=== PATIENT | female | born 1990 | race Caucasian/White ===

== ENCOUNTER → 2017-07-05 | Outpatient (CLI) | payer BC | END | disposition home or self-care (01) | LOC: LABWHC1 12:01 | PROVIDERS: ATTEND Obstetrics & Gynecology | DX: O20.0 Threatened abortion (principal); Z3A.00 Weeks of gestation of pregnancy not specified | CPT/HCPCS: 36415; 84702; 86850; 86900; 86901 ==

== ENCOUNTER → 2017-09-15 | Outpatient (CLI) | payer BC ==
--- NOTE | 2017-09-15 10:22 | US ---
EXAMINATION TYPE: US pelvic complete DATE OF EXAM: 09/15/2017 COMPARISON: NONE CLINICAL HISTORY: R10.2 PELVIC PAIN. Pt states pelvic pressure/ pain, more on right, pt states miscar riage in JUNE TECHNIQUE: Transabdominal (TA). Date of LMP: 09/07/2017 EXAM MEASUREMENTS: Uterus: 7.8 x 3.5 x 3.6 cm Endometrial Stripe: 0.7 cm Right Ovary: 2.8 x 1.8 x 2.1 cm Left Ovary: 2.8 x 2.0 x 3.1 cm 1. Uterus: Retroverted wnl 2. Endometrium: wnl 3. Right Ovary: wnl, follicles 4. Left Ovary: wnl, follicles 5. Bilateral Adnexa: wnl 6. Posterior cul-de-sac: Small amount of free fluid IMPRESSION: 1. Small amount of free fluid within the cul-de-sac. 2. Small ovarian follicles.
== END | disposition home or self-care (01) ==
LOC: RADUSWWP 09:08
PROVIDERS: ATTEND Internal Medicine
DX: R18.8 Other ascites (principal)
CPT/HCPCS: 76856

== ENCOUNTER 2019-01-01 00:49 | Outpatient (CLI) | payer BC ==
[2019-01-01] MEDS: TERBUTALINE 1 MG/ML VIAL SQ PRN ×3 (01:20→01:50)
[2019-01-01] MEDS: LACTATED RINGERS 1,000 ML IV SCH ×3 (01:23→01:45)
[2019-01-01 02:58] VITALS: BP 135/80; PULSE 110; RESP 18; TEMP 98.2
--- NOTE | 2019-03-03 07:42 | P.MSEPDOC ---
Presenting Problems - Arrival Data Date of Arrival on Unit: 01/01/19 Time of Arrival on Unit: 00:45 Mode of Transport: Wheelchair - Complaint OB-Reason for Admission/Chief Complaint: Possible Onset of Labor Medical History - Information : 3 Para: 2 Term: 2 : 0 Abortions: Spontaneous or Elective: 0 Number of Living Children: 2 - Gestational Age Gestational Age by DAISY (wks/days): 33 Weeks and 5 Days Review of Systems - Review of Systems Constitutional: No problems Breast: No problems ENT: No problems Cardiovascular: No problems Respiratory: No problems Gastrointestinal: No problems Genitourinary: No problems Musculoskeletal: No problems Neurological: No problems Skin: No problems Vital Signs - Temperature Temperature: 98.2 F Temperature Source: Oral - Pulse Pulse Oximetery Pulse Rate: 110 Pulse Assessment Method: Automatic Cuff - Respirations Respiratory Rate: 18 Oxygen Delivery Method: Room Air O2 Sat by Pulse Oximetry: 99 - Blood Pressure Sitting Blood Pressure: 135/80 Blood Pressure Mean: 98 Blood Pressure Source: Automatic Cuff Medical Screen Scoring (Pre) - Cervical Exam Dilation: 1-3 cm = 1 Membranes: Intact - Uterine Contractions Frequency: < 36 weeks = 6 Duration: > 40 seconds = 2 Intensity: N/A - Maternal Vital Signs Maternal Temperature: N/A Maternal Blood Pressure: N/A Signs of Preeclampsia: N/A Maternal Respirations: N/A - Maternal Trauma Maternal Trauma: N/A - Assessment - Baby A Baseline FHR: 145 Heart Rate - NICHD Category: Category I (Normal) = 0 NST: Reactive Position: N/A Station: N/A - Total Score - Baby A Total Score - Baby A: 9 - Total Score - Baby B Total Score - Baby B: 9 - Total Score - Baby C Total Score - Baby C: 9 - Level of Risk - Baby A Level of Risk - Baby A: Medium (6-9) - Level of Risk - Baby B Level of Risk - Baby B: Medium (6-9) - Level of Risk - Baby C Level of Risk - Baby C: Medium (6-9) Physician Notification (Pre) - Physician Notified Physician Notified Date: 01/01/19 Physician Notified Time: 01:05 New Order Received: Yes - Notification Comment Comment: Initiate iv and give a 1-2 L bolus to see if contractions settle with iv hydration and recheck cervix in one hour. 0118: Seen FFN give Terbutaline .25mg every 15 minutes for up to 4 doses, if have to give the 4th dose and or FFN is positive call physician with report. 02:23: Discharge home with instructions, no heavy lifting, no intercourse, follow up with Dr. Mayorga in the office this week. Disposition - Disposition OB Disposition: Physician follow up in office, Discharge to home, Written follow up instructions reviewed Discharge Date: 01/01/19 Discharge Time: 02:34 I agree with the RN Medical Screening Exam: Yes Risk & Benefit of care provided described in d/c instruction: Yes Diagnosis: FALSE LABOR BEFORE 37 COMPLETED WEEKS OF GEST, THIRD TRI
== END 2019-01-01 02:34 | disposition home or self-care (01) ==
LOC: FBPOP 00:49
PROVIDERS: ATTEND Obstetrics & Gynecology
DX: O47.03 False labor before 37 completed weeks of gestation, third trimester (principal); Z3A.33 33 weeks gestation of pregnancy
CPT/HCPCS: 99214; 96360; 96361; 96372; 82731; J3105; 96365

== ENCOUNTER 2019-01-29 12:47 | Outpatient (CLI) | payer BC ==
[2019-01-29 14:23] VITALS: BP 132/79; PULSE 99; RESP 16; TEMP 98.5
--- NOTE | 2019-02-20 09:57 | P.MSEPDOC ---
Presenting Problems - Arrival Data Date of Arrival on Unit: 01/29/19 Time of Arrival on Unit: 12:47 Mode of Transport: Wheelchair - Complaint OB-Reason for Admission/Chief Complaint: Vaginal Bleeding, Pain Medical History - Information : 4 Para: 2 Term: 2 : 0 Abortions: Spontaneous or Elective: 1 Number of Living Children: 2 - Gestational Age Gestational Age by DAISY (wks/days): 37 Weeks and 5 Days Review of Systems - Review of Systems Constitutional: No problems Breast: No problems ENT: No problems Cardiovascular: No problems Respiratory: No problems Gastrointestinal: No problems Genitourinary: No problems Musculoskeletal: No problems Neurological: No problems Skin: No problems Vital Signs - Temperature Temperature: 98.5 F Temperature Source: Oral - Pulse Pulse Oximetery Pulse Rate: 99 Pulse Assessment Method: Pulse Oximetry - Respirations Respiratory Rate: 16 Oxygen Delivery Method: Room Air O2 Sat by Pulse Oximetry: 97 - Blood Pressure Right Arm Sitting Blood Pressure: 132/79 Blood Pressure Mean: 96 Blood Pressure Source: Automatic Cuff Medical Screen Scoring (Pre) - Cervical Exam Dilation: 1-3 cm = 1 Membranes: Intact - Uterine Contractions Frequency: > or = 36 weeks =2 Duration: > 40 seconds = 2 Intensity: N/A - Maternal Vital Signs Maternal Temperature: N/A Maternal Blood Pressure: N/A Signs of Preeclampsia: N/A Maternal Respirations: N/A - Maternal Trauma Maternal Trauma: N/A - Assessment - Baby A Baseline FHR: 160 Heart Rate - NICHD Category: Category I (Normal) = 0 NST: Reactive Position: N/A Station: N/A - Total Score - Baby A Total Score - Baby A: 5 - Total Score - Baby B Total Score - Baby B: 5 - Total Score - Baby C Total Score - Baby C: 5 - Level of Risk - Baby A Level of Risk - Baby A: Low (0-5) - Level of Risk - Baby B Level of Risk - Baby B: Low (0-5) - Level of Risk - Baby C Level of Risk - Baby C: Low (0-5) Physician Notification (Pre) - Physician Notified Physician Notified Date: 01/29/19 Physician Notified Time: 14:12 New Order Received: Yes - Notification Comment Comment: Joel murillo\Dr. Mcwilliams; advsd , 37 5/7 presents to triage with pain and brown discharge; SVE 1.5/40/-2, unchanged after 1 hr, reactive NST, contraction pattern reviewed; pt requesting to stay another hr r/t distance from hospital; order rec'd to watch another hour, may be d/c if repeat SVE is unchanged. Medical Screen Scoring (Post) - Cervical Exam Dilation: 1-3 cm = 1 Effacement: Exam Deferred Membranes: Intact - Uterine Contractions Frequency: > or = 36 weeks =2 - Total Score Total Score - Baby A: 3 Total Score - Baby B: 3 Total Score - Baby C: 3 - Post Treatment Level of Risk Post Treatment Level of Risk - Baby A: Low (0-5) Post Treatment Level of Risk - Baby B: Low (0-5) Post Treatment Level of Risk - Baby C: Low (0-5) Disposition - Disposition OB Disposition: Discharge to home, Written follow up instructions reviewed Discharge Date: 01/29/19 Discharge Time: 15:15 I agree with the RN Medical Screening Exam: Yes Risk & Benefit of care provided described in d/c instruction: Yes Diagnosis: FALSE LABOR AT OR AFTER 37 COMPLETED WEEKS OF GESTATION
== END 2019-01-29 15:15 | disposition home or self-care (01) ==
LOC: FBPOP 12:47
PROVIDERS: ATTEND Obstetrics & Gynecology
DX: O47.1 False labor at or after 37 completed weeks of gestation (principal); Z3A.37 37 weeks gestation of pregnancy
CPT/HCPCS: 59025; 99213

== ENCOUNTER 2019-02-06 17:08 | Inpatient (IN) | payer BC, OTHER ==
[2019-02-06] MEDS ORDERED: TERBUTALINE 1 MG/ML VIAL SQ PRN (20:07)
[2019-02-06] MEDS ORDERED: OXYTOCIN 10 UNIT/ML 1 ML VIAL IM PRN (20:07)
[2019-02-06] MEDS ORDERED: METHYLERGONOVINE 0.2 MG/ML 1 ML AMP IM PRN (20:07)
[2019-02-06] MEDS ORDERED: CARBOPROST TROMETHAMINE 250 MCG/ML 1 ML AMP IM PRN (20:07)
[2019-02-06] MEDS ORDERED: LIDOCAINE 0.5% (PF) 5 MG/ML (50 ML SDV) SQ PRN (20:07)
[2019-02-06] MEDS ORDERED: PENICILLIN G POTASSIUM 5,000,000 UNIT in DEXTROSE 5% IN WATER 100 ML IVPB STA ×2 (20:11)
[2019-02-06] MEDS: LACTATED RINGERS 1,000 ML IV SCH ×2 (21:03→23:11)
[2019-02-06 21:06] LABS: Basophils % (A) 0 %; Eosinophils # (A) 0.1 k/uL (0-0.7); Eosinophils % (A) 1 %; HCT 39.3 % (34.0-46.0); Lymphocytes % (A) 17 %; MCH 27.1 pg (25.0-35.0); MCV 82.1 fL (80.0-100.0); Mean Platelet Volume 11.6; Monocytes # (A) 0.5 k/uL (0-1.0); Monocytes % (A) 4 %; Neutrophils # (A) 9.5 k/uL (1.3-7.7); Neutrophils % (A) 77 %; Platelet Count 149 k/uL (150-450); RBC 4.79 m/uL (3.80-5.40); RDW 13.9 % (11.5-15.5); WBC 12.3 k/uL (3.8-10.6)
[2019-02-06] MEDS ORDERED: ROPIVACAINE 5MG/ML 20ML VIAL ONE (23:07)
[2019-02-06] MEDS ORDERED: fentaNYL (PF) 50 MCG/ML 5 ML AMP ONE (23:07)
[2019-02-06] MEDS ORDERED: SODIUM CHLORIDE 0.9% 100 ML BAG ONE (23:07)
[2019-02-07] MEDS: LACTATED RINGERS 1,000 ML IV SCH (00:14)
[2019-02-07] MEDS: PENICILLIN G POTASSIUM 2,500,000 UNIT in DEXTROSE 5% IN WATER 100 ML IVPB SCH ×4 (01:00→04:57)
--- NOTE | 2019-02-07 05:42 | P.HPOB ---
History of Present Illness H&P Date: 02/07/19 Chief Complaint: Vaginal bleeding This is a 28-year-old 4 para 2012 woman with an estimated due date of 02/14/2019 based on 9 week ultrasound. She presents with vaginal spotting for the last 2 days. She is also complaining of pelvic pressure and contractions. She was evaluated in labor and delivery triage and was found to make cervical change management facilitator time. Being 3 cm when she presented and progressing to 4-5 cm with regular contractions. She was therefore admitted. She did not have any clinical vaginal bleeding on her initial by UA patient nor rupture of membranes. Her has been essentially unremarkable. The infant has a small ventriculoseptal defect confirmed by echocardiogram. Plan is for pediatric evaluation. Laboratory data: Group B strep positive, blood type A+, antibody screen negative, rubella immune, VDRL nonreactive, hepatitis B surface antigen negative, HIV negative, gonorrhea and clinic cultures negative, glucose tolerance testing within normal limits. Obstetric history: 2013 at term, 2016 at term, spontaneous miscarriage 2018. Review of Systems All systems: negative Past Medical History Past Medical History: No Reported History History of Any Multi-Drug Resistant Organisms: None Reported Past Surgical History: No Surgical Hx Reported Additional Past Surgical History / Comment(s): Exploratory Lap -2018 Past Anesthesia/Blood Transfusion Reactions: No Reported Reaction Past Psychological History: No Psychological Hx Reported Smoking Status: Former smoker Past Alcohol Use History: None Reported Past Drug Use History: None Reported - Past Family History Mother Family Medical History: No Reported History Medications and Allergies Home Medications Medication Instructions Recorded Confirmed Type 78/Iron/Folate 1/Dha 1 each PO DAILY 01/01/19 02/06/19 History [Prenate Dha Softgel] Allergies Allergy/AdvReac Type Severity Reaction Status Date / Time No Known Allergies Allergy Verified 02/06/19 17:31 Exam Vital Signs Temp Pulse Resp BP 02/06/19 20:42 97.9 F 91 18 114/71 02/06/19 19:30 98.3 F 16 125/77 Intake and Output 02/06/19 02/06/19 02/07/19 14:59 22:59 06:59 Output Total 200 Balance -200 Output: Urine 200 Other: # Voids 1 1 Weight 87.997 kg Targeted physical exam is performed secondary to active labor. On patient is a comfortable female who is visibly gravid. She has a notable ocular nystigmous. On pelvic examination on admission per RN cervix is 4+ centimeters dilated, 50% effaced vertex in the -3 station. Intact. heart tones are category 1 with contractions every 2-3 minutes. Results Result Diagrams: 02/06/19 20:55 Abnormal Lab Results - Last 24 Hours (Table) 02/06/19 Range/Units 20:55 WBC 12.3 H (3.8-10.6) k/uL Plt Count 149 L (150-450) k/uL Neutrophils # 9.5 H (1.3-7.7) k/uL Assessment and Plan (1) Spontaneous onset of labor Current Visit: Yes Status: Acute Code(s): [id number] - SNOMED Code(s): 47362889 (2) GBS (group B Streptococcus carrier), +RV culture, currently Current Visit: Yes Status: Acute Code(s): O99.820 - STREPTOCOCCUS B CARRIER STATE COMPLICATING SNOMED Code(s): 4216375251830 Plan: 28-year-old 4 para 2012 woman admitted at 38-6/7 weeks gestation in spontaneous active labor. Group B strep prophylactic antibiotics will be initiated. May have epidural anesthetic upon request. Anticipate normal spontaneous vaginal delivery.
--- NOTE | 2019-02-07 05:45 | P.PROBDLV ---
Vaginal Delivery Note - . Vaginal Delivery Note: Findings: Female in the vertex right occiput anterior position with Apgars of 8 at 1 minute and 9 at 5 minutes weighing 8 lbs. 5 oz., 3760 g. First-degree perineal laceration. EBL approximately 150 mL's. Delivery summary: This is a 28 showed 4 para 2011 woman who presented at 38-6/7 weeks gestation in spontaneous active labor. She was admitted and group B strep prophylactic antibiotics were initiated. She received an epidural anesthetic. Several hours after admission she had spontaneous rupture of membranes with clear fluid. Onset of labor was 1900, rupture of membranes was 0002 and she reached complete cervical dilation by 0524. She commenced pushing with very strong maternal effort. With she was repositioned, prepped and draped in the dorsal modified Brandon position. With additional maternal effort 1 the head did deliver from the right occiput anterior position. The anterior followed by the posterior shoulders were delivered without difficulty and the rest the infant was delivered onto the field. The nose and mouth were bulb suctioned. The infant was placed on the maternal abdomen and the cord was cut approximately 45 seconds later. The infant was then taken to the warmer where Apgars were 8 at 1 minute and 9 at 5 minutes and weight was 8 lbs. 5 oz. Perineum was inspected and a first-degree laceration was noted. This was infused with lidocaine and repaired with 3-0 Vicryl suture in a [id number] fashion. An intact, three-vessel cord placenta was then expressed. The rest of the vagina was inspected and noted to be intact. The uterus was massaged and was noted to be firm. The patient received Pitocin following delivery of the placenta. All counts were correct. Both mother and were doing well post delivery in the room. Yeast Stacker to evaluate for possible VSD this morning.
[2019-02-07] MEDS ORDERED: ACETAMINOPHEN TAB 325 MG TAB PO PRN (05:58)
[2019-02-07] MEDS ORDERED: diphenhydrAMINE 50 MG/ML 1 ML VIAL IVP PRN ×2 (05:58)
[2019-02-07] MEDS ORDERED: LANOLIN CREAM 5 GM TUBE TOPICAL PRN (05:58)
[2019-02-07] MEDS ORDERED: BENZOCAINE/MENTHOL SPRAY 1 GM/SPRAY AEROSOL TOPICAL PRN (05:58)
[2019-02-07] MEDS ORDERED: ZOLPIDEM 5 MG TAB PO PRN (05:58)
[2019-02-07] MEDS ORDERED: HYDROCORTISONE 2.5% RECTAL CREAM 30 GM TUBE RECTAL PRN (05:58)
[2019-02-07] MEDS ORDERED: SIMETHICONE 80 MG CHEWABLE PO PRN (05:58)
[2019-02-07] MEDS ORDERED: WITCH HAZEL 1 EACH MED..PAD TOPICAL PRN (05:58)
[2019-02-07] MEDS ORDERED: diphenhydrAMINE 25 MG CAP PO PRN (05:58)
[2019-02-07] MEDS ORDERED: diphenhydrAMINE 50 MG CAP PO PRN (05:58)
[2019-02-07] MEDS ORDERED: OXYTOCIN 20 UNITS/1000 ML NS 1,000 ML IV SCH (06:00)
[2019-02-07] MEDS: IBUPROFEN 600 MG TAB PO PRN ×3 (06:26→19:46)
[2019-02-07] MEDS: SENNOSIDES-DOCUSATE SODIUM 1 EACH TAB PO SCH ×2 (07:48→20:49)
[2019-02-07 23:49] VITALS: RESP 16
[2019-02-08] MEDS: IBUPROFEN 600 MG TAB PO PRN ×2 (02:14→10:53)
[2019-02-08 07:53] LABS: Basophils % (A) 0 %; Eosinophils # (A) 0.2 k/uL (0-0.7); Eosinophils % (A) 3 %; HCT 33.1 % (34.0-46.0); Lymphocytes # (A) 2.5 k/uL (1.0-4.8); Lymphocytes % (A) 33 %; MCH 27.9 pg (25.0-35.0); MCHC 33.3 g/dL (31.0-37.0); Mean Platelet Volume 11.7; Monocytes # (A) 0.3 k/uL (0-1.0); Monocytes % (A) 5 %; Neutrophils # (A) 4.2 k/uL (1.3-7.7); Neutrophils % (A) 56 %; Platelet Count 117 k/uL (150-450); RBC 3.95 m/uL (3.80-5.40); RDW 14.1 % (11.5-15.5); WBC 7.4 k/uL (3.8-10.6)
[2019-02-08 08:20] VITALS: BP 112/68; PULSE 84; TEMP 97.6
--- NOTE | 2019-02-08 08:27 | P.DS ---
Providers Date of admission: 02/06/19 20:19 Expected date of discharge: 02/08/19 Attending physician: Maxwell Mayorga Primary care physician: Stated None - Discharge Diagnosis(es) (1) Normal spontaneous vaginal delivery Current Visit: No Status: Acute Hospital Course: The patient is 28-year-old 4 para 2012Admitted in early labor with all signs reassuring. Her has been uncomplicated though the infant was found with a possible ventriculoseptal defect confirmed by echo. Otherwise, there were no complications. Group B strep status was positive. On labor and delivery, antibody prophylaxis for group B strep was started and she had an epidural catheter placed for analgesia. She progressed through the course of labor and ultimately reached complete after which time she pushed to a normal spontaneous vaginal delivery of a viable 8 lbs. 5 oz. baby girl with Apgars of 8 at 1 minute and 9 at 5 minutes. The patient's course was entirely unremarkable vital signs being stable and her temperature was afebrile throughout. She was deemed stable for discharge on day #1 was discharged home to follow-up in the office in 6 weeks' time routinely. Discharge instructions included calling for any significantly increased bleeding or foul-smelling lochia, significantly increased fever or abdominal pain, perineal complaints, breast complaints, or anything else that concerned her. She was additionally instructed to have nothing in the vagina for at least 6 weeks time to include intercourse. She understood all of her instructions and agrees to follow up as noted above. She is interested in having tubal ligation performed and will have this done at approximately 6 weeks . Maternal blood type is A+ and rubella status is immune. Procedures: #1. Antibiotic prophylaxis #2. Epidural analgesia #3. Normal spontaneous vaginal delivery #4. Repair of first-degree perineal laceration Patient Condition at Discharge: Good Plan - Discharge Summary New Discharge Prescriptions: No Action 78/Iron/Folate 1/Dha [Prenate Dha Softgel] 1 each PO DAILY Discharge Medication List 78/Iron/Folate 1/Dha [Prenate Dha Softgel] 1 each PO DAILY 01/01/19 [History] Follow up Appointment(s)/Referral(s): Maxwell Mayorga MD [STAFF PHYSICIAN] - 6 Weeks Discharge Disposition: HOME SELF-CARE
== END 2019-02-08 13:45 | disposition home or self-care (01) | DRG 807 ==
LOC: FBPOP 17:08 → 4FBP 20:19
PROVIDERS: ADMIT Obstetrics & Gynecology; ATTEND Obstetrics & Gynecology
PROC: 10E0XZZ Delivery of Products of Conception, External Approach (ICD-10-PCS; principal; 2019-02-07)
PROC: 0HQ9XZZ Repair Perineum Skin, External Approach (ICD-10-PCS; 2019-02-07)
PROC: 00HU33Z Insertion of Infusion Device into Spinal Canal, Percutaneous Approach (ICD-10-PCS; 2019-02-07)
PROC: 3E0R3BZ Introduction of Anesthetic Agent into Spinal Canal, Percutaneous Approach (ICD-10-PCS; 2019-02-07)
DX: O99.824 Streptococcus B carrier state complicating childbirth (principal); Z37.0 Single live birth; O70.0 First degree perineal laceration during delivery; Z3A.38 38 weeks gestation of pregnancy; Z87.891 Personal history of nicotine dependence
CPT/HCPCS: 59025; 85025; 86850; 86900; 86901; 99213

== ENCOUNTER → 2019-03-15 | Outpatient (CLI) | payer BC ==
[2019-03-15 13:21] LABS: Basophils % (A) 0 %; Eosinophils # (A) 0.4 k/uL (0-0.7); Eosinophils % (A) 5 %; HCT 42.9 % (34.0-46.0); HGB 13.9 gm/dL (11.4-16.0); Lymphocytes # (A) 2.5 k/uL (1.0-4.8); Lymphocytes % (A) 33 %; MCH 27.1 pg (25.0-35.0); MCHC 32.3 g/dL (31.0-37.0); MCV 83.9 fL (80.0-100.0); Monocytes # (A) 0.3 k/uL (0-1.0); Monocytes % (A) 4 %; Neutrophils # (A) 4.1 k/uL (1.3-7.7); Neutrophils % (A) 55 %; Platelet Count 172 k/uL (150-450); RBC 5.12 m/uL (3.80-5.40); RDW 13.1 % (11.5-15.5); WBC 7.4 k/uL (3.8-10.6)
== END ==
LOC: LABPAT 12:32
PROVIDERS: ATTEND Obstetrics & Gynecology
DX: Z01.812 Encounter for preprocedural laboratory examination (principal)
CPT/HCPCS: 36415; 85025

== ENCOUNTER 2019-03-28 07:18 | Day surgery (SDC) | payer BC ==
[~2019-03-28 07:18] MED LIST: DEXAMETHASONE SOD PHOSPHATE 10 MG/ML 1 ML VIAL IV ONE; KETOROLAC 30 MG/ML 1 ML VIAL IVP SCH; LIDOCAINE 1% (10MG/ML) FOR IV START INTRADERMA PRN; METOCLOPRAMIDE 5 MG/ML 2 ML VIAL IVP PRN; MIDAZOLAM 2 MG/2 ML VIAL IV PRN; ONDANSETRON 4 MG/2 ML VIAL IVP ONE; Pre Op ABX Message 1 EACH MISC MISCELLANE ONE; SCOPOLAMINE 1.5MG/72HR PATCH TRANSDERM ONE
[2019-03-28] MEDS: LACTATED RINGERS 1,000 ML IV SCH ×2 (08:11→08:31)
[2019-03-28] MEDS ORDERED: Acetaminophen-Codeine 300-30mg TAB PO PRN ×2 (08:23)
[2019-03-28] MEDS ORDERED: diphenhydrAMINE 50 MG/ML 1 ML VIAL IVP PRN (08:23)
[2019-03-28] MEDS ORDERED: SIMETHICONE 80 MG CHEWABLE PO PRN (08:23)
[2019-03-28] MEDS ORDERED: IBUPROFEN 600 MG TAB PO PRN (08:23)
[2019-03-28] MEDS ORDERED: ONDANSETRON 4 MG/2 ML VIAL IVP PRN (08:23)
[2019-03-28] MEDS ORDERED: LACTATED RINGERS 1,000 ML IV SCH (08:30)
[2019-03-28] MEDS ORDERED: ROCURONIUM BROMIDE 10 MG/ML 5 ML VIAL IV ONE (08:31)
[2019-03-28] MEDS ORDERED: KETOROLAC 30 MG/ML 1 ML VIAL ONE (08:31)
[2019-03-28] MEDS ORDERED: GLYCOPYRROLATE 0.2 MG/ML 2 ML VIAL ONE (08:31)
[2019-03-28] MEDS ORDERED: fentaNYL (PF) 50 MCG/ML 2 ML AMP ONE (08:31)
[2019-03-28] MEDS ORDERED: PROPOFOL 10 MG/ML 20 ML VIAL IV ONE (08:31)
[2019-03-28] MEDS ORDERED: NEOSTIGMINE 1 MG/ML 10 ML VIAL ONE (08:31)
[2019-03-28] MEDS ORDERED: MIDAZOLAM 2 MG/2 ML VIAL ONE (08:31)
[2019-03-28] MEDS ORDERED: SUCCINYLCHOLINE CHLORIDE 100 MG/5 ML SYR IV ONE (08:31)
[2019-03-28] MEDS ORDERED: LIDOCAINE 1% INJ 10MG/ML (20 ML MDV) ONE (08:31)
[2019-03-28] MEDS ORDERED: BUPIVACAINE (PF) 0.25% 30 ML VIAL SQ ONE ×2 (08:56)
--- NOTE | 2019-03-28 09:12 | P.OP ---
Date of Procedure: 03/28/19 Preoperative Diagnosis: #1. Multiparity #2. Undesired fertility Postoperative Diagnosis: Same Procedure(s) Performed: #1. Laparoscopic bilateral tubal occlusion with Filshie clips Anesthesia: TYLER Surgeon: Maxwell Mayorga Estimated Blood Loss (ml): 5 IV fluids (ml): 600 Urine output (ml): 5 Pathology: none sent Condition: stable Disposition: PACU Operative Findings: Preoperative pelvic examination demonstrated a roughly 5-6 week retroverted mobile normal shaped uterus with normal adnexa bilaterally. Intraoperatively, the findings were confirmed with a retroverted and fairly floppy slightly enlarged uterus consistent with her relatively recent state. The bilateral tubes and ovaries were normal and there was no evidence of any endometriosis or other pathology in the pelvis. I was unable to identify the appendix and the upper abdomen looked entirely normal as did the small and large bowel that was seen. Description of Procedure: The patient was prepped and draped in usual fashion after general endotracheal anesthesia was administered by the anesthesiologist. A speculum was placed and the anterior lip of the cervix was grasped using 2 tenaculum allowing placement of an acorn cannula for manipulation. The bladder was drained of approximately 5 mL of clear meek urine after removal of the speculum. Attention was turned to the abdomen where a site was selected below the umbilicus where a 5 mm incision was made in the transverse plane allowing insertion of a 5 mm optical trocar under direct vision station without difficulty. A pneumoperitoneum was established and Trendelenburg position utilized to sweep the bowel from the pelvis. A site was selected approximate 4-57 m above the pubic symphysis in the midline where an 8 mm incision was made in the transverse plane allowing insertion of an 8 mm trocar under direct visualization without difficulty. The blunt probe was utilized to further sweep the bowel from the pelvis. It was then replaced with a Filshie clip applicator which was used to place a Filshie clip across the entire thickness of the isthmic portion of each tube approximately 2-3 cm from the cornu bilaterally. Exploration of the remainder the pelvis and abdomen demonstrated no pathology or findings of concern and is documented in findings as above. The entire pneumoperitoneum was then evacuated through the 2 port sites and the ports removed without difficulty. The skin was closed with interrupted subcuticular stitches of 4-0 Vicryl followed by half- inch Steri-Strips with Mastisol. Each site was injected with approximate 5 mL of quarter percent Marcaine without epinephrine. All sponge, instrument, and needle counts were correct. There were no complications. Estimated blood loss for the case was approximate 5 mL. The patient tolerated the procedure well and proceeded to the recovery room in stable condition.
[2019-03-28 09:26] VITALS: TEMP 99
[2019-03-28] MEDS: HYDROmorphone 0.5 MG/0.5 ML SYRINGE IVP PRN ×3 (09:29→09:53)
[2019-03-28] MEDS ORDERED: LACTATED RINGERS 1,000 ML IV ONE (09:41)
[2019-03-28 11:24] VITALS: RESP 16
[2019-03-28 12:12] VITALS: BP 119/76; PULSE 76
[2019-03-28] MEDS ORDERED: IBUPROFEN 200 MG TAB PO ONE (12:50)
== END 2019-03-28 13:29 | disposition home or self-care (01) ==
LOC: OR 07:18
PROVIDERS: ATTEND Obstetrics & Gynecology
DX: Z30.2 Encounter for sterilization (principal); G43.909 Migraine, unspecified, not intractable, without status migrainosus; Z98.890 Other specified postprocedural states; Z88.8 Allergy status to other drugs, medicaments and biological substances; Z87.891 Personal history of nicotine dependence
CPT/HCPCS: 81025; 58671; J2250; J2710; J2405; J2001; J3010; J1885; J0330; J2704; J1170

== ENCOUNTER 2020-01-19 13:44 | Emergency (ER) | payer BC, OTHER ==
[2020-01-19 14:03] VITALS: BP 125/81; PULSE 107; RESP 20; TEMP 99.5
--- NOTE | 2020-01-19 14:25 | ED ---
General Adult HPI - General Chief complaint: Abdominal Pain Stated complaint: lower abd pain. Time Seen by Provider: 01/19/20 14:09 Source: patient, RN notes reviewed, old records reviewed Mode of arrival: ambulatory Limitations: no limitations - History of Present Illness Initial comments: 29-year-old female patient to ED for evaluation. Patient reports that she had tubal clamps placed in March 2019. She reports that she had her normal menses around January 05. She reports that since then she has developed lower pelvic pain around where she believes her clamps are. She denies any dysuria or concern for STI. Denies nausea vomiting or diarrhea. Denies any other complaints. Systemic: Pt denies fatigue, fever/chills, rash. Pt denies weakness, night sweats, weight loss. Neuro: Pt denies headache, visual disturbances, syncope or pre-syncope. HEENT: Pt denies ocular discharge or irritation, otalgia, rhinorrhea, pharyngitis or notable lymphadenopathy. Cardiopulmonary: Pt denies chest pain, SOB, heart palpitations, dyspnea on exertion. Abdominal/GI: Pt denies abdominal pain, n/v/d. : Pt denies dysuria, burning w/ urination, frequency/urgency. Denies new onset urinary or bowel incontinence. MSK: Pt denies myalgia, loss of strength or function in extremities. Neuro: Pt denies new onset weakness, paresthesias. - Related Data Home Medications Medication Instructions Recorded Confirmed Ibuprofen 200 - 400 mg PO Q6H PRN 03/23/19 01/19/20 Allergies Allergy/AdvReac Type Severity Reaction Status Date / Time No Known Allergies Allergy Verified 01/19/20 16:31 Review of Systems ROS Statement: Those systems with pertinent positive or pertinent negative responses have been documented in the HPI. ROS Other: All systems not noted in ROS Statement are negative. Past Medical History Past Medical History: No Reported History History of Any Multi-Drug Resistant Organisms: None Reported Past Surgical History: No Surgical Hx Reported Additional Past Surgical History / Comment(s): Exploratory Lap -2017. Clamps placed on tubes 2019 Past Anesthesia/Blood Transfusion Reactions: No Reported Reaction Past Psychological History: No Psychological Hx Reported Smoking Status: Never smoker Past Alcohol Use History: None Reported Past Drug Use History: None Reported - Past Family History Mother Family Medical History: No Reported History General Exam - General Exam Comments Initial Comments: Constitutional: NAD, AOX3, Pt has pleasant affect. HEENT: NC/AT, trachea midline, neck supple, no lymphadenopathy. Posterior pharynx non erythematous, without exudates. External ears appear normal, without discharge. Mucous membranes moist. Eyes PERRLA, EOM intact. There is no scleral icterus. No pallor noted. Cardiopulmonary: RRR, no murmurs, rubs or gallops, no JVD noted. Lungs CTAB in anterior and posterior morris. No peripheral edema. Abdominal exam: Abdomen soft and non-distended. Abdomen non-tender to palpation in all 4 quadrants. Bowel sounds active in LLQ. No hepatosplenomegaly. No ecchymosis. Mild right inguinal tenderness. Neuro: CN II-XII grossly intact. No nuchal rigidity. No raccon eyes, no dumont sign, no hemotympanum. No cervical spinal tenderness. MSK: Full active ROM in upper and lower extremities, 5/5 stregnth. Pelvic: mucosa pink, small amount of white discharge noted, no lesions noted, no purulent drainage, no cervical motion tenderness or inguinal tenderness. Chaperogned by LACHELLE Benavidez. Limitations: no limitations Course Vital Signs 01/19/20 14:00 Temperature 99.5 F Pulse Rate 107 H Respiratory 20 Rate Blood Pressure 125/81 O2 Sat by Pulse 100 Oximetry Medical Decision Making - Medical Decision Making 29-year-old female patient to ED for evaluation of pelvic pain ongoing the last 2 weeks. Patient's vital signs are stable, afebrile. Physical exam displayed very mild tenderness. Laboratory investigations were unremarkable. Ultrasound was obtained. This displayed bilateral ovarian follicles, his web assistant left ovary. No sign of torsion. pelvic displayed small amount of discharge. 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 Case discussed with Dr. weiss. - Lab Data Result diagrams: 01/19/20 14:31 01/19/20 14:31 Lab Results 01/19/20 01/19/20 01/19/20 Range/Units 14:31 14:31 14:31 WBC 8.0 (3.8-10.6) k/uL RBC 5.37 (3.80-5.40) m/uL Hgb 13.8 (11.4-16.0) gm/dL Hct 43.9 (34.0-46.0) % MCV 81.6 (80.0-100.0) fL MCH 25.7 (25.0-35.0) pg MCHC 31.5 (31.0-37.0) g/dL RDW 14.2 (11.5-15.5) % Plt Count 238 (150-450) k/uL MPV 8.5 Neutrophils % 62 % Lymphocytes % 29 % Monocytes % 4 % Eosinophils % 3 % Basophils % 0 % Neutrophils # 4.9 (1.3-7.7) k/uL Lymphocytes # 2.3 (1.0-4.8) k/uL Monocytes # 0.3 (0-1.0) k/uL Eosinophils # 0.3 (0-0.7) k/uL Basophils # 0.0 (0-0.2) k/uL Sodium (137-145) mmol/L Potassium (3.5-5.1) mmol/L Chloride (98-107) mmol/L Carbon Dioxide (22-30) mmol/L Anion Gap mmol/L BUN (7-17) mg/dL Creatinine (0.52-1.04) mg/dL Est GFR (CKD-EPI)AfAm (>60 ml/min/1.73 sqM) Est GFR (CKD-EPI)NonAf (>60 ml/min/1.73 sqM) Glucose (74-99) mg/dL Plasma Lactic Acid Clay (0.7-2.0) mmol/L Calcium (8.4-10.2) mg/dL Total Bilirubin (0.2-1.3) mg/dL AST (14-36) U/L ALT (4-34) U/L Alkaline Phosphatase (38-126) U/L Total Protein (6.3-8.2) g/dL Albumin (3.5-5.0) g/dL Lipase (23-300) U/L Urine Color Yellow Urine Appearance Turbid H (Clear) Urine pH 5.5 (5.0-8.0) Ur Specific [place] 1.031 (1.001-1.035) Urine Protein 1+ H (Negative) Urine Glucose (UA) Negative (Negative) Urine Ketones Negative (Negative) Urine Blood Negative (Negative) Urine Nitrite Negative (Negative) Urine Bilirubin Negative (Negative) Urine Urobilinogen <2.0 (<2.0) mg/dL Ur Leukocyte Esterase Trace H (Negative) Urine RBC 2 (0-5) /hpf Ur Squamous Epith Cells 17 H (0-4) /hpf Amorphous Sediment Occasional H (None) /hpf Urine Mucus Many H (None) /hpf Urine HCG, Qual Not Detected (Not Detectd) 01/19/20 01/19/20 Range/Units 14:31 14:31 WBC (3.8-10.6) k/uL RBC (3.80-5.40) m/uL Hgb (11.4-16.0) gm/dL Hct (34.0-46.0) % MCV (80.0-100.0) fL MCH (25.0-35.0) pg MCHC (31.0-37.0) g/dL RDW (11.5-15.5) % Plt Count (150-450) k/uL MPV Neutrophils % % Lymphocytes % % Monocytes % % Eosinophils % % Basophils % % Neutrophils # (1.3-7.7) k/uL Lymphocytes # (1.0-4.8) k/uL Monocytes # (0-1.0) k/uL Eosinophils # (0-0.7) k/uL Basophils # (0-0.2) k/uL Sodium 138 (137-145) mmol/L Potassium 3.9 (3.5-5.1) mmol/L Chloride 106 (98-107) mmol/L Carbon Dioxide 21 L (22-30) mmol/L Anion Gap 11 mmol/L BUN 10 (7-17) mg/dL Creatinine 0.68 (0.52-1.04) mg/dL Est GFR (CKD-EPI)AfAm >90 (>60 ml/min/1.73 sqM) Est GFR (CKD-EPI)NonAf >90 (>60 ml/min/1.73 sqM) Glucose 95 (74-99) mg/dL Plasma Lactic Acid Clay 0.9 (0.7-2.0) mmol/L Calcium 9.6 (8.4-10.2) mg/dL Total Bilirubin 0.5 (0.2-1.3) mg/dL AST 24 (14-36) U/L ALT 13 (4-34) U/L Alkaline Phosphatase 59 (38-126) U/L Total Protein 8.1 (6.3-8.2) g/dL Albumin 4.7 (3.5-5.0) g/dL Lipase 85 (23-300) U/L Urine Color Urine Appearance (Clear) Urine pH (5.0-8.0) Ur Specific [place] (1.001-1.035) Urine Protein (Negative) Urine Glucose (UA) (Negative) Urine Ketones (Negative) Urine Blood (Negative) Urine Nitrite (Negative) Urine Bilirubin (Negative) Urine Urobilinogen (<2.0) mg/dL Ur Leukocyte Esterase (Negative) Urine RBC (0-5) /hpf Ur Squamous Epith Cells (0-4) /hpf Amorphous Sediment (None) /hpf Urine Mucus (None) /hpf Urine HCG, Qual (Not Detectd) Disposition Clinical Impression: Ovarian cyst, Pelvic pain Disposition: HOME SELF-CARE Condition: Stable Instructions (If sedation given, give patient instructions): Ovarian Cyst (ED), Pelvic Pain in Women (ED) Additional Instructions: follow-up with primary care provider and [employer] TABLE ATTENDANT tomorrow. Return to ER if any worsening symptoms. Is patient prescribed a controlled substance at d/c from ED?: No Referrals: None,Stated [Primary Care Provider] - 1-2 days Maxwell Mayorga MD [STAFF PHYSICIAN] - 1-2 days Keshia Hall MD [REFERRING] - 1-2 days
[2020-01-19 15:03] LABS: Basophils % (A) 0 %; Eosinophils # (A) 0.3 k/uL (0-0.7); Eosinophils % (A) 3 %; HCT 43.9 % (34.0-46.0); HGB 13.8 gm/dL (11.4-16.0); Lymphocytes # (A) 2.3 k/uL (1.0-4.8); Lymphocytes % (A) 29 %; MCH 25.7 pg (25.0-35.0); MCHC 31.5 g/dL (31.0-37.0); MCV 81.6 fL (80.0-100.0); Mean Platelet Volume 8.5; Monocytes # (A) 0.3 k/uL (0-1.0); Monocytes % (A) 4 %; Neutrophils # (A) 4.9 k/uL (1.3-7.7); Neutrophils % (A) 62 %; Platelet Count 238 k/uL (150-450); RBC 5.37 m/uL (3.80-5.40); RDW 14.2 % (11.5-15.5)
[2020-01-19 15:12] LABS: Amorphous Sediment,Urine Occasional /hpf; Appearance,Urine Turbid (Clear); Bilirubin,Urine Negative (Negative); Blood,Urine Negative (Negative); Color,Urine Yellow; Glucose,Urine (UA) Negative (Negative); Ketones,Urine Negative (Negative); Leukocyte Esterase,Urine Trace (Negative); Mucus,Urine Many /hpf; Nitrite,Urine Negative (Negative); PH, Urine 5.5 (5.0-8.0); Protein,Urine 1+ (Negative); RBC,Urine 2 /hpf (0-5); Specific Gravity,Urine 1.031 (1.001-1.035); Squamous Epithelial Cell,Urine 17 /hpf (0-4); Urobilinogen,Urine <2.0 mg/dL (<2.0)
[2020-01-19 15:27] LABS: ALT 13 U/L (4-34); AST 24 U/L (14-36); African American GFR (CKD) >90 (>60 ml/min/1.73 sqM); Albumin 4.7 g/dL (3.5-5.0); Alkaline Phosphatase 59 U/L (38-126); Anion Gap 11 mmol/L; Blood Urea Nitrogen 10 mg/dL (7-17); Calcium 9.6 mg/dL (8.4-10.2); Carbon Dioxide 21 mmol/L (22-30); Chloride 106 mmol/L (98-107); Glucose 95 mg/dL (74-99); Lipase 85 U/L (23-300); Non-African American GFR(CKD) >90 (>60 ml/min/1.73 sqM); Potassium 3.9 mmol/L (3.5-5.1); Sodium 138 mmol/L (137-145); Total Bilirubin 0.5 mg/dL (0.2-1.3); Total Protein 8.1 g/dL (6.3-8.2)
--- NOTE | 2020-01-19 15:46 | US ---
EXAMINATION TYPE: US transvaginal DATE OF EXAM: 01/19/2020 COMPARISON: US CLINICAL HISTORY: pain s/p tubal clamp 03/2019. Patient c/o knots midline and left pelvis with intermi ttent pelvic pain; Tubal ligation 2019 TECHNIQUE: Transvaginal (TV). per EC physician request. Date of LMP: 01/06/2020 EXAM MEASUREMENTS: Uterus: 7.1 x 5.8 x 4.0 cm Endometrial Stripe: 0.7 cm Right Ovary: 3.0 x 1.9 x 1.4 cm Left Ovary: 3.5 x 2.6 x 2.0 cm 1. Uterus: Retroverted, multiple Nabothian Cysts seen in cervix with largest = 0.5 x 0.5 x 0.6cm. 2. Endometrium: thickness is wnl for Day 14 LMP 3. Right Ovary: multifollicular with largest follicular cyst 0.6 x 0.7 x 0.4cm 4. Left Ovary: multifollicular with largest simple follicle = 1.2 x 1.0 x 1.0cm Spectral, color and waveform doppler imaging shows good arterial and venous flow within the ovaries ; there is no evidence for ovarian torsion. 5. Bilateral Adnexa: wnl 6. Posterior cul-de-sac: wnl Tubal ligation clamps are not noted by US. IMPRESSION: 1. Bilateral ovarian follicles. There is a cyst on the left ovary measuring 1 cm.
== END 2020-01-19 17:25 | disposition home or self-care (01) ==
LOC: EC 13:44
DX: N83.202 Unspecified ovarian cyst, left side (principal); Z98.890 Other specified postprocedural states
CPT/HCPCS: 36415; 76830; 80053; 81001; 81025; 83605; 83690; 85025; 87070; 87491; 87591; 87808; 93975; 99284

== ENCOUNTER → 2020-08-23 | Outpatient (CLI) | payer BC ==
--- NOTE | 2020-08-23 15:50 | USB ---
EXAMINATION TYPE: US breast limited BILAT DATE OF EXAM: 08/23/2020 COMPARISON: NONE CLINICAL HISTORY: N63 Lump. Findings: The right breast was scanned with ultrasound from 12-3 o'clock and in the retroareolar region and rig ht axilla. The left breast was scanned with ultrasound at 1:00 and 9-12:00 and in the retroareolar re gion and axilla. There is no sonographic correlate for bilateral breast pain and questionable palpable abnormalities. Normal-appearing lymph nodes are noted in the bilateral axilla. IMPRESSION: No definite sonographic correlate for bilateral breast pain and possible palpable abnormalities. Clin ical follow-up is recommended. Negative mammogram and/or ultrasound report should not deter biopsy of a clinically suspicious palpab le lesion. BI-RADS 2, benign. Annual screening mammogram is recommended beginning at age 40 unless patient has other clinical facto rs or increased risk factors for which earlier imaging would be recommended.
== END | disposition home or self-care (01) ==
LOC: RADMAMWWP 14:34
PROVIDERS: ATTEND Family Medicine
DX: N63.10 Unspecified lump in the right breast, unspecified quadrant (principal); N63.20 Unspecified lump in the left breast, unspecified quadrant